=== PATIENT | female | born 1960 | race Caucasian/White ===

== ENCOUNTER → 2016-11-19 | Outpatient (CLI) | payer OTHER ==
[~2016-11-19] MED LIST: DICL1GEL7 TOPICAL; LEVO-168 PO; METH10TA PO; REST0.05 EACH EYE
[2016-11-19 08:35] LABS: BASOPHIL # 0.1 TH/MM3 (0-0.2); BASOPHIL % 1.3 % (0.0-2.0); EOSINOPHIL # 0.2 TH/MM3 (0-0.4); EOSINOPHIL % 2.9 % (0.0-4.0); HEMATOCRIT 38.4 % (35.0-46.0); HEMO FLAGS DIFF FINAL; LYMPH % 27.5 % (9.0-44.0); LYMPHOCYTE # 1.4 TH/MM3 (1.0-4.8); MEAN CELL VOLUME 93.9 FL (80.0-100.0); MEAN CORPUSCULAR HEMOGLOBIN 30.8 PG (27.0-34.0); MEAN CORPUSCULAR HGB CONC 32.9 % (32.0-36.0); MONO % 9.8 % (0.0-8.0); NEUT % 58.5 % (16.0-70.0); PLATELET COUNT 141 TH/MM3 (150-450); RED BLOOD COUNT 4.09 MIL/MM3 (4.00-5.30); RED CELL DISTRIBUTION WIDTH 12.8 % (11.6-17.2); WHITE BLOOD COUNT 5.2 TH/MM3 (4.0-11.0)
[2016-11-19 08:58] LABS: ALKALINE PHOSPHATASE 149 U/L (45-117); TOTAL BILIRUBIN ADULT 0.3 MG/DL (0.2-1.0)
[2016-11-19 09:00] LABS: ALT (GPT) 36 U/L (10-53); ANION GAP 4 MEQ/L (5-15); AST (GOT) 29 U/L (15-37); BICARBONATE 32.9 MEQ/L (21.0-32.0); BLOOD UREA NITROGEN 14 MG/DL (7-18); CHLORIDE 101 MEQ/L (98-107); GLOMERULAR FILTRATION RATE 64 ML/MIN (>89); GLUCOSE,FASTING 93 MG/DL (74-99); LDL CHOLESTEROL 84 MG/DL (0-99); POTASSIUM 5.1 MEQ/L (3.5-5.1); SODIUM (NA) 138 MEQ/L (136-145)
== END ==
LOC: CLAB 08:08
PROVIDERS: ATTEND Family Medicine
DX: E03.9 Hypothyroidism, unspecified (principal)
CPT/HCPCS: 36415; 80053; 80061; 84443; 85025

== ENCOUNTER → 2017-09-27 | Day surgery (SDC) | payer OTHER ==
[~2017-09-27] MED LIST changes: +BUPIVACAINE HCL PF 0.75% 30 ML VIAL ONE; +PROPOFOL 200 MG/20 ML AMP IV ONE; +SCOP1PAT2 T-DERMAL; +TRIAMCINOLONE ACETONIDE 40 MG/ML VIAL I-ARTICULR ONE
--- NOTE | 2017-09-27 11:14 | M6 ---
cc: Celine Seals MD DATE: 09/27/2017 PROCEDURE: Fluoroscopically-guided injection, bilateral lumbar facet joints (bilateral L3-4, L4-5 and L5-S1 facet joints). History and physical was completed and signed. Consent was signed. Procedure site was marked. Medications were listed and reconciled. Pain score was recorded. Allergies were noted. Time out was taken. Fluoroscopy time was recorded where applicable. Sedation was administered or directed by Dr. Seals. The patient was given oxygen. The patient was monitored by a registered nurse. Total procedure time was greater than 15 minutes. DESCRIPTION OF THE PROCEDURE: IV was started. Blood pressure cuff pulse, oximeter and EKG were applied. The patient was placed in the prone position on a Arnold table sedated with small amounts of propofol titrated to effect. Vital signs were monitored and remained stable throughout the procedure. The fluoroscopy was used to visualize the bilateral lumbar facet joints at L3-4, L4-5 and L5-S1. Separate sterile 3-1/2 inch, 25 gauge spinal needles were advanced into these joints under fluoroscopic guidance. There was negative aspiration for blood and any other type of fluid and at each location, the patient was given 1 mL of Marcaine 0.75% which contained 10 mg of Kenalog. Following the procedure, the patient was taken to the recovery room with stable vital signs neurologically intact. She will be evaluated immediately and with followup to determine if she has a subjective decrease in her usual pain and a corresponding objective increase in her functional capabilities. MD PASCUAL Barnhart/CRICKET , 10:48 AM , 11:13 AM
== END | disposition home or self-care (01) ==
LOC: PHSDC 08:50
PROVIDERS: ATTEND Pain Medicine Interventional Pain Medicine
DX: M54.5 Low back pain (principal)
CPT/HCPCS: 64493; 64494; 64495; 99152; J3301